=== PATIENT | female | born 1990 | race American Indian/Alaskan Native ===

== ENCOUNTER 2017-05-09 10:31 | Emergency (ER) | payer OTHER, MEDICAID ==
--- NOTE | 2017-05-09 11:12 | ED PDOC ---
Arrival/HPI - General Historian: Patient - History of Present Illness Time/Duration: Other (6 days) Symptom Onset: Gradual Symptom Course: Improving - General Chief Complaint: Female Genitourinary Time Seen by Provider: 05/09/17 10:33 - History of Present Illness Narrative History of Present Illness (Text): 05/09/17 11:10 27-year-old female presents today with a six-day history of vaginal bleeding. Patient states yesterday she had heavy vaginal bleeding and passed a large blood clot. Patient states since then she just had a brownish discharge. She denies abdominal pain. Denies fevers or chills. Denies urinary symptoms. No chest pain or shortness of breath. Denies nausea vomiting diarrhea or constipation. Patient states she spoke to her employment attorney and was told to come into the emergency room for evaluation of her vaginal bleeding. Patient states her last period was 03/12/2017. Denies dizziness or weakness. No other complaints (Azoia,Anitha T) Past Medical History - Provider Review Nursing Documentation Reviewed: Yes - Travel History Have you recently traveled outside [place] w/in the past 3 mons?: No - Infectious Disease Hx of Infectious Diseases: None - Reproductive Menopause: No - Hematological/Oncological Hx Anemia: Yes - Psychiatric Hx Substance Use: No - Anesthesia Hx Anesthesia: No Family/Social History - Physician Review Nursing Documentation Reviewed: Yes Family/Social History: No Known Family HX Smoking Status: Never Smoked Hx Alcohol Use: No Hx Substance Use: No Allergies/Home Meds Allergies/Adverse Reactions: Allergies No Known Allergies Allergy (Verified 05/09/17 10:58) Home Medications: Home Meds Medication Instructions Recorded Confirmed Ferrous Sulfate [Feosol] 325 mg PO DAILY 05/09/17 05/09/17 Multivit/Folic Acid/I 1 tab PO DAILY 05/09/17 05/09/17 [ Plus] Review of Systems - Review of Systems Constitutional: absent: Fatigue, Fevers Respiratory: absent: SOB, Cough Cardiovascular: absent: Chest Pain, Palpitations Gastrointestinal: absent: Abdominal Pain, Constipation, Diarrhea, Nausea, Vomiting Genitourinary Female: Vaginal Bleeding. absent: Dysuria, Frequency, Hematuria, Vaginal Discharge Musculoskeletal: absent: Arthralgias, Back Pain, Neck Pain Skin: absent: Rash, Pruritis Psychiatric: absent: Anxiety, Depression Physical Exam Vital Signs Reviewed: Yes Temperature: Afebrile Blood Pressure: Normal Pulse: Regular Respiratory Rate: Normal Appearance: Positive for: Well-Appearing, Non-Toxic, Comfortable Pain Distress: None Mental Status: Positive for: Alert and Oriented X 3 - Systems Exam Head: Present: Atraumatic Mouth: Present: Moist Mucous Membranes Neck: Present: Normal Range of Motion Respiratory/Chest: Present: Clear to Auscultation, Good Air Exchange. No: Respiratory Distress, Accessory Muscle Use Cardiovascular: Present: Regular Rate and Rhythm, Normal S1, S2. No: Murmurs Abdomen: Present: Normal Bowel Sounds. No: Tenderness, Distention, Peritoneal Signs, Rebound, Guarding Genitourinary/Pelvic Exam: Present: Normal External Genitalia, Vaginal Bleeding (slight brown-willy discharge), Cervical os Closed, Other (chaparoned by Dianna beckford RN). No: Vaginal Discharge, Vaginal Lesions, Adenexal Tenderness, Adenexal Mass, Cervical Motion Tendernes, Odor Back: Present: Normal Inspection. No: CVA Tenderness Lower Extremity: Present: Normal ROM. No: Edema Neurological: Present: GCS=15 Skin: Present: Warm, Dry, Normal Color. No: Rashes Psychiatric: Present: Alert, Oriented x 3 Vital Signs Temp Pulse Resp BP Pulse Ox 05/09/17 13:51 79 18 128/71 99 05/09/17 12:05 86 18 130/75 99 05/09/17 10:54 99 F 92 H 19 132/87 99 05/09/17 10:48 98.3 F 104 H 17 149/104 H 100 Medical Decision Making ED Course and Treatment: 05/09/17 11:34 I was available for consultation during PA evaluation. The chart was reviewed by me, and I agree with disposition. The documented history was done by the physician braille coder. The documented physical exam was done by the physician braille coder. The documented procedures were done by the physician braille coder. ( Joey Rondon) 05/09/17 11:12 Patient is nontoxic well appearing in no distress. Vital signs are stable. CBC: hgb;10.1 CMP: wnl Beta hC.80 TYPE AND SCREEN: o+ Urinalysis: no leukocytes Ultrasound: Findings: The uterus measures approximately 8.7 x 5.2 x 5.6 cm. Cervix length measures approximately 3.3 cm. There is a single intrauterine fetus present. 3 mm yolk sac. The gestational sac measures 0.8 cm. The crown-rump length measures 0.3 cm and is compatible with a gestational age of 5 weeks 6 days. There is heart motion which measured 129.2 BPM. The right ovary measures 2.4 x 1.6 x 1.4 cm. The left ovary is not visualized. Blood flow is demonstrated to the right ovary. Impression: Live single intrauterine with estimated gestational age 5 weeks 6 days. heart rate 129.2 bpm. Advise an anomaly screen at 16-18 weeks gestational age The left ovary is not visualized. Discussed all the results the patient. advised f/u with the nurse gynecology within the next 2 days. advised immediate return if symptoms worsen,persist or if new symptoms develop. Patient verbalizes understanding of discharge instructions and need for immediate followup. Impression: threatened Tylenol every 4 hours as needed for pain Increase fluids Followup with the can piler within the next 2 days Return immediately if symptoms worsen persist or if new symptoms develop: High fevers, heavy bleeding, severe abdominal pain, vomiting, diarrhea, dizziness or weakness or any other concerning symptoms develop. 05/09/17 15:04 (Anitha Loaiza) - Lab Interpretations Lab Results: 05/09/17 11:33 05/09/17 13:44 Lab Results 05/09/17 13:46: Blood Type Confirm O POSITIVE 05/09/17 13:44: Blood Type O POSITIVE, Antibody Screen Negative, BBK History Checked No verified bt 05/09/17 13:44: Sodium 140, Potassium 3.7, Chloride 105, Carbon Dioxide 25, Anion Gap 14, BUN 10, Creatinine 0.5, Est GFR ( Amer) > 60, Est GFR (Non- Af Amer) > 60, Random Glucose 86, Calcium 9.1, Total Bilirubin 0.8, AST 24, ALT 29, Alkaline Phosphatase 48, Total Protein 8.2, Albumin 4.5, Globulin 3.8, Albumin/Globulin Ratio 1.2 05/09/17 11:52: Blood Type Cancelled, Antibody Screen Cancelled, BBK History Checked Cancelled 05/09/17 11:46: Beta HCG, Quant 4161.80 H 05/09/17 11:33: WBC 5.7, RBC 4.43, Hgb 10.1 L, Hct 31.8 L, MCV 71.8 L, MCH 22.8 L, MCHC 31.8, RDW 19.7 H, Plt Count 281, MPV 10.0, Gran % 65.2, Lymph % (Auto) 28.6, [place] % (Auto) 5.6, Eos % (Auto) 0.2 L, Baso % (Auto) 0.4, Gran # 3.72, Lymph # 1.6, [place] # 0.3, Eos # 0.0, Baso # 0.02, Neutrophils % (Manual) 66, Lymphocytes % (Manual) 28, Monocytes % (Manual) 6, Platelet Evaluation Normal, Hypochromasia Slight, Anisocytosis (manual) Slight, Microcytosis (manual) Slight 05/09/17 11:33: Urine Color Yellow, Urine Appearance Clear, Urine pH 6.0, Ur Specific [place] >= 1.030, Urine Protein 30 H, Urine Glucose (UA) Negative, Urine Ketones 40 H, Urine Blood Negative, Urine Nitrate Negative, Urine Bilirubin Negative, Urine Urobilinogen 1.0 H, Ur Leukocyte Esterase Negative, Urine RBC 0 - 2, Urine WBC 0 - 2, Ur Epithelial Cells 0 - 2 - RAD Interpretation Radiology Orders: 05/09/17 11:08 OB TRANSVAGINAL [US] Stat - Medication Orders Current Medication Orders: Discontinued Medications Sodium Chloride (Sodium Chloride 0.9%) 500 mls @ 999 mls/hr IV .Q31M STA Stop: 05/09/17 12:28 Last Admin: 05/09/17 12:12 Dose: 999 mls/hr Disposition/Present on Arrival - Present on Arrival Any Indicators Present on Arrival: No History of DVT/PE: No History of Uncontrolled Diabetes: No Urinary Catheter: No History of Decub. Ulcer: No History Surgical Site Infection Following: None - Disposition Have Diagnosis and Disposition been Completed?: Yes Disposition Time: 14:30 Patient Plan: Discharge - Disposition Diagnosis: Threatened Disposition: HOME/ ROUTINE Patient Problems: Current Active Problems Problem Status Onset Threatened Acute Condition: GOOD Discharge Instructions (ExitCare): Threatened Miscarriage (ED) Additional Instructions: Tylenol every 4 hours as needed for pain Increase fluids Followup with the can piler within the next 2 days Return immediately if symptoms worsen persist or if new symptoms develop: High fevers, heavy bleeding, severe abdominal pain, vomiting, diarrhea, dizziness or weakness or any other concerning symptoms develop. Referrals: Jaison Lees MD [Medical Doctor] - Follow up with primary Forms: [employer] ([place]), WORK NOTE
[2017-05-09 11:17] VITALS: TEMP 99; O2SAT 99; BMI 30.2
[2017-05-09 11:40] LABS: BASO # 0.02 K/mm3 (0.0-2.0); BASO % 0.4 % (0.0-3.0); EOS % 0.2 % (1.5-5.0); GRAN # 3.72 (1.4-6.5); GRAN % 65.2 % (50.0-68.0); HEMATOCRIT 31.8 % (36.0-48.0); LYMPH # 1.6 (1.2-3.4); LYMPH % 28.6 % (22.0-35.0); MEAN CELL VOLUME 71.8 fl (80.0-105.0); MEAN CORPUSCULAR HEMOGLOBIN 22.8 pg (25.0-35.0); MEAN CORPUSCULAR HGB CONC 31.8 g/dl (31.0-37.0); MONO # 0.3 (0.1-0.6); MONO % 5.6 % (1.0-6.0); PLATELET COUNT 281 10^3/uL (120.0-450.0); RED CELL DISTRIBUTION WIDTH 19.7 % (11.5-14.5); URINE BILIRUBIN NEGATIVE (NEGATIVE); URINE BLOOD NEGATIVE (NEGATIVE); URINE GLUCOSE (UA) NEGATIVE (NEGATIVE); URINE KETONE 40 mg/dL (NEGATIVE); URINE LEUKOCYTE ESTERASE NEGATIVE Leu/uL (NEGATIVE); URINE PROTEIN 30 mg/dL (<30 mg/dL); WHITE BLOOD COUNT 5.7 10^3/ul (4.5-11.0)
[2017-05-09 11:44] LABS: URINE APPEARANCE CLEAR (CLEAR); URINE COLOR YELLOW (YELLOW)
[2017-05-09 11:54] LABS: URINE EPITHELIAL CELLS 0 - 2 /hpf (0-5); URINE RBC 0 - 2 /hpf (0-2); URINE WBC 0 - 2 /hpf (0-6)
[2017-05-09] MEDS ORDERED: Sodium Chloride 0.9% 500 ML IV STA (11:58)
[2017-05-09 12:06] VITALS: RESP 18
[2017-05-09 12:15] LABS: NEUTROPHIL 66 % (50.0-70.0)
[2017-05-09 12:16] LABS: ANISOCYTOSIS SLIGHT; HYPOCHROMIA SLIGHT; MICROCYTOSIS SLIGHT; PLATELET ESTIMATE NORMAL (NORMAL)
--- NOTE | 2017-05-09 12:34 | US ---
Indication: Vaginal bleeding, Comparison: None available Technique: Transvaginal pelvic ultrasound. Findings: The uterus measures approximately 8.7 x 5.2 x 5.6 cm. Cervix length measures approximately 3.3 cm. There is a single intrauterine fetus present. 3 mm yolk sac. The gestational sac measures 0.8 cm. The crown-rump length measures 0.3 cm and is compatible with a gestational age of 5 weeks 6 days. There is heart motion which measured 129.2 BPM. The right ovary measures 2.4 x 1.6 x 1.4 cm. The left ovary is not visualized. Blood flow is demonstrated to the right ovary. Impression: Live single intrauterine with estimated gestational age 5 weeks 6 days. heart rate 129.2 bpm. Advise an anomaly screen at 16-18 weeks gestational age The left ovary is not visualized.
[2017-05-09 13:59] LABS: ALB/GLOB RATIO 1.2 (1.1-1.8); ALKALINE PHOSPHATASE 48 U/L (38-126); ALT/SGPT 29 U/L (7-56); AST/SGOT 24 U/L (14-36); BILIRUBIN,TOTAL 0.8 mg/dL (0.2-1.3); BLOOD UREA NITROGEN 10 mg/dL (7-21); CALCIUM 9.1 mg/dL (8.4-10.5); CARBON DIOXIDE 25 mmol/L (21-33); CHLORIDE 105 mmol/L (98-107); GFR AFRICAN-AMERICAN > 60; GLUCOSE,RANDOM 86 mg/dL (70-110); POTASSIUM 3.7 mmol/L (3.6-5.0); SODIUM 140 mmol/L (132-148); TOTAL PROTEIN 8.2 g/dL (5.8-8.3)
[2017-05-09 15:30] VITALS: BP 126/80; PULSE 75
== END 2017-05-09 15:31 | disposition home or self-care (01) ==
LOC: ED 10:31 → MERGE 10:31 → ED 15:31
DX: O20.0 Threatened abortion (principal); Z3A.01 Less than 8 weeks gestation of pregnancy
CPT/HCPCS: 76817; 80053; 81001; 84702; 85025; 86850; 86900; 87086; 99285; J7040